=== PATIENT | male | born 1960 | race Caucasian/White ===

== ENCOUNTER 2019-06-04 01:32 | Emergency (ER) | payer BC ==
[~2019-06-04] VITALS: Ht 170.2 cm; Wt 90.0 kg
[2019-06-04] MEDS: PREDNISONE 20MG TABLET PO ONE (02:12)
[2019-06-04] MEDS: FAMOTIDINE 20MG TABLET PO ONE (02:12)
[2019-06-04] MEDS: DIPHENHYDRAMINE 50MG CAPSULE PO ONE (02:12)
[2019-06-04] MEDS: NAPHAZOLINE HCL/PHENIR MAL OPHTH SOLN 15ML BOTHEYE PRN (03:19)
[2019-06-04 04:16] VITALS: BP 130/78
== END 2019-06-04 04:17 | disposition home or self-care (01) ==
LOC: ER 02:03
DX: R22.0 Localized swelling, mass and lump, head (principal); F17.200 Nicotine dependence, unspecified, uncomplicated; I10 Essential (primary) hypertension; K21.9 Gastro-esophageal reflux disease without esophagitis; I25.10 Atherosclerotic heart disease of native coronary artery without angina pectoris; Z98.890 Other specified postprocedural states
CPT/HCPCS: 99284; J7512; Q0163; Z7610